=== PATIENT | female | born 1985 | race Caucasian/White ===

== ENCOUNTER 2017-04-08 21:16 | Inpatient (IN) | payer OTHER ==
--- NOTE | ~2017-04-08 | DS ---
Unit #: [id number] #: [id number] Patient: ROSA MOLINA [id number] [facility] [address] [place] [address] [id number] I MR#: [id number] NAME: ROSA MOLINA ROOM: [facility] Age: 31 Sex: F Admission Date: 04/09/2017 : 1985 Discharge Date: 04/11/2017 Attending Physician: Chris Blackwell M.D. DISCHARGE SUMMARY REASON FOR ADMISSION Substance abuse and chemical dependency. HISTORY OF PRESENT ILLNESS Ms. Rosa Molina is a 31-year-old female, admitted on 04/09/2017 and discharged on 04/11/2017. The patient was treated on the inpatient unit with chemical dependency group, psychoeducation, and psychotherapy. The patient responded well with the above modalities of treatment. Subsequently, the patient was discharged with a plan to follow up in an outpatient program. DISCHARGE MEDICATION None. LABORATORY DATA Unremarkable except urine drug screen positive for benzodiazepine, cocaine, and amphetamine. DISCHARGE DIAGNOSES Psychiatric: Opioid use disorder, severe, F11.20; alcohol use disorder, severe, F10.20; cannabis abuse, moderate, F12.20; major depressive disorder, recurrent, severe, F33.2. Secondary diagnosis: Deferred. Medical diagnosis: None. Stressors: Psychosocial stressors. DISCHARGE INSTRUCTIONS The patient is to follow up in outpatient clinic as per licensed clinical social worker. CONDITION ON DISCHARGE The patient was pleasant and cooperative. Denied any psychotic symptom or any suicidal ideation. PROGNOSIS Guarded. DIET AND ACTIVITY As tolerated. Unit #: [id number] #: [id number] Patient: ROSA MOLINA Dictated by... Leslie Barney/suresh TD: 04/12/2017 11:43 JOB #: [id number] DISCHARGE SUMMARY Page 1 of 1 X Chris Blackwell MD X DISCHARGE SUMMARY
--- NOTE | ~2017-04-08 | PA ---
Unit #: [id number] #: [id number] Patient: CESARIO MOLINA [id number] [facility] [address] [place] [address] [id number] MR#: [id number] NAME: CESARIO MOLINA ROOM: [facility] Age: 31 Sex: F Admission Date: 04/09/2017 : 1985 Date of Assessment: 04/09/2017 Attending Physician: Chris Blackwell M.D. Admitting Physician: Chris Blackwell M.D. Primary Care Physician: Primary Care Physician No PSYCHIATRIC ASSESSMENT DATE OF SERVICE 04/09/2017. INFORMANTS The patient reliability, fair; chart reliability, good. CHIEF COMPLAINT Opioid and alcohol abuse with withdrawal, anxiety, and depression. HISTORY OF PRESENT ILLNESS Ms. Lee is a 31-year-old female presented with the above-mentioned complaint. The patient reported use of heroin and alcohol. Reported currently using heroin daily approximately 1 g, last use in the morning of 04/07/2017. The patient reported weekly use of alcohol, half a gallon of vodka, last use on 04/07/2017. The patient reported current withdrawal symptom and scored 20 on CIWA and 22 on COWS. The patient reported currently suicidal ideation with onset of withdrawal symptom. The patient denied any current plans. The patient reported suicidal thoughts. The patient currently denied any homicidal ideation or any psychotic symptom. The patient reported that increased life stressors, homelessness, grief, unemployment, loss of custody of children. Needing inpatient admission at this time for psychiatric stabilization. PAST PSYCHIATRIC HISTORY Remarkable for history of previous treatment at [facility] in 12/2015. FAMILY HISTORY AND SOCIAL HISTORY The patient is currently homeless, lost her children, poor support system. No history of any abuse. MEDICAL HISTORY Unremarkable for any chronic medical illness except for withdrawal symptoms. Musculoskeletal; strength and tone, no atrophy or abnormal movement. Gait normal. MEDICATION HISTORY None. ALLERGIES No known drug allergies. SUBSTANCE ABUSE HISTORY The patient reported tobacco use, age of onset 13; alcohol, age of onset Unit #: [id number] #: [id number] Patient: CESARIO MOLINA 12; crack cocaine, age of onset 17; and opioid, age of onset 20. Longest period of sobriety 2 years. Last period of sobriety in 2010. The patient reported history of blackouts. No history of any HIV or hepatitis. History of IV drug use. History of abdominal cramping, muscle cramping, diaphoresis, diarrhea, depressed mood, irritability, restlessness, sleep problem, tremor. REVIEW OF SYSTEMS HEENT: Eyes; clear. Ears, nose, mouth, and throat; clear. CARDIOVASCULAR: Unremarkable. RESPIRATORY: Unremarkable. GI: Unremarkable. : Unremarkable. SKIN: Unremarkable. LYMPH NODE: Unremarkable. NEUROLOGIC: Unremarkable. ENDOCRINE: Unremarkable. HEMATOLOGIC: Unremarkable. ALLERGIC/IMMUNOLOGIC: Unremarkable. MUSCULOSKELETAL: Muscle strength and tone, no atrophy or abnormal movement. Gait normal. MENTAL STATUS EXAMINATION CONSTITUTIONAL: Measurement of vital signs; temperature 98.5, pulse 69, respirations 16, and blood pressure 113/74. Height 5 feet 4 inches and weight 140 pounds. GENERAL APPEARANCE: The patient dressed casually. The patient did not show any facial deformity. MUSCULOSKELETAL: Please see above. PSYCHIATRIC EXAMINATION Description of speech; regular rate, normal volume, normal articulation, coherent. Description of thought process, goal directed. Description of association, intact. Description of abnormal psychotic thinking, the patient denied any hallucinations or delusions, but sad, depressed, suicidal ideation, substance abuse. Description of the patient's judgment: Concerning everyday activity, poor. Social situation, poor. Concerning psychiatric condition, poor. Complete mental status examination; oriented in time, place, and person. Recent and remote memory, fair. Attention span and concentration, fair. Language; able to name object, repeat phrases. Fund of knowledge; aware of current event, passive vocabulary intact. Mood and affect; sad, depressed. Insight and judgment, fair to poor. ASSETS AND LIABILITIES Assets; the patient is articulate, able to take care of her ADL. Liabilities; history of substance abuse, depression. ADMITTING DIAGNOSES Psychiatric: 1. Opioid use disorder, severe, F11.20. 2. Alcohol use disorder, severe, F10.20. 3. Major depressive disorder, recurrent, severe, F33.2. Secondary diagnosis: Deferred. Medical diagnosis: None. Unit #: [id number] #: [id number] Patient: CESARIO MOLINA Stressors: Psychosocial stressors. PSYCHIATRIC PLAN, TREATMENT GOAL, AND DISCHARGE PLAN 1. Advised to admit the patient on the inpatient unit. Provide safe, supportive, and structured environment. 2. Ordered labs; CBC, CMP, UA, UDS, and test. 3. Detox protocol, detox monitoring, and SP1 precaution. 4. The patient is to attend all the programing including group therapy, individual therapy, and chemical dependency group. If family is available, family therapy. 5. Treatment goal is to attain euthymic mood, gain insight into her problem, and learn coping skills. 6. Discharge plan: Plan is to stabilize the patient and consider followup in outpatient program. ESTIMATED LENGTH OF STAY 5 to 7 days. Dictated by... Chris Blackwell M.D. ANDREW/suresh TD: 04/10/2017 00:39 JOB #: [id number] PSYCHIATRIC ASSESSMENT Page 1 of 1 X Chris Blackwell MD X PSYCHIATRIC ASSESSMENT
--- NOTE | ~2017-04-08 | PN ---
Unit #: [id number] #: [id number] Patient: CESARIO MOLINA [id number] [facility] [address] [place] [address] [id number] MR#: [id number] NAME: CESARIO MOLINA ROOM: [facility] Age: 31 Sex: F Admission Date: 04/09/2017 : 1985 Attending Physician: Chris Blackwell M.D. Admitting Physician: Chris Blackwell M.D. Primary Care Physician: Primary Care Physician Babs GARCIA PROGRESS NOTES DATE 04/10/2017 DISCUSSION Ms. Lee is a 31-year-old female, seen on 04/10/2017. The patient compliant and cooperative, mood sad and dysphoric, withdrawn, isolative, still reporting having withdrawal symptoms. The patient's vital signs, 97.9, 75, 118/75. Height 5 feet 4 inches. REVIEW OF SYSTEMS Complete review of systems unremarkable. MENTAL STATUS EXAMINATION General appearance: Patient dressed casually. Attention span and concentration, fair. Oriented to place and person. Mood and affect, labile. Speech, monotone. Thought process, concrete. The patient denied any thoughts of harming self or others but withdrawn, sad, depressed, anxious. Recent and remote memory, poor. Insight and judgment, poor. DIAGNOSES 1. Opiate abuse disorder, severe. 2. Major depressive disorder, recurrent, severe. ASSESSMENT/PLAN Advised to continue with the current medication and therapeutic protocol, and if needed consider further adjustment of medication. Dictated by... Leslie Barney/selam TD: 04/11/2017 07:38 JOB #: [id number] Unit #: [id number] #: [id number] Patient: CESARIO MOLINA [facility] PROGRESS NOTES Page 1 of 1 X Chris Blackwell MD PROGRESS NOTE
--- NOTE | ~2017-04-08 | HP ---
Unit #: [id number] #: [id number] Patient: ROSA MOLINA [id number] [place] [address] [id number] MR#: [id number] NAME: ROSA MOLINA ROOM: [facility] Age: 31 Sex: F Admission Date: 04/09/2017 : 1985 Attending Physician: Chris Blackwell M.D. Admitting Physician: Chris Blackwell M.D. Primary Care Physician: Primary Care Physician No HISTORY AND PHYSICAL HISTORY OF PRESENT ILLNESS Rosa is a 31-year-old female admitted to [facility] because of her polysubstance abuse which includes snorting heroin and alcohol. PAST MEDICAL HISTORY 1. Long history of alcohol abuse. 2. History of opioid abuse to include snorting heroin. PAST SURGICAL HISTORY Nothing reported. ALLERGIES No known drug allergies. SOCIAL HISTORY Smokes 1 pack per day. Drinks alcohol frequently. Admits a history of opioid abuse to include snorting heroin. FAMILY HISTORY Medically noncontributory. REVIEW OF SYSTEMS She does not answer questions appropriately. There are no reports of nausea, vomiting or diarrhea. She has had no cough or increased temperature. CURRENT MEDICATIONS Detox protocol. PHYSICAL EXAMINATION GENERAL: Alert, well-nourished, in no apparent distress. VITAL SIGNS: Blood pressure 113/74, heart rate 70, respirations 16, temperature 98.6. WEIGHT: 140. HEIGHT: 5 feet 4 inches. SKIN: Warm and dry without rash or lesion. HEENT: Normocephalic. TMs not viewed. Oral and nasal passages clear. Conjunctivae clear. PERRLA. EOMs intact. NECK: Supple without lymphadenopathy or thyromegaly. HEART: Regular rate and rhythm without murmur. LUNGS: Clear. ABDOMEN: Soft, nontender. : Not done. Unit #: [id number] #: [id number] Patient: ROSA MOLINA EXTREMITIES: No evidence of cyanosis, clubbing or edema. Moves all without focal deficit. NEUROLOGICAL: Unable to complete extended exam. She does move all extremities without focal deficit. 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 IMPRESSION Psychiatric admission. RECOMMENDATIONS PSYCHIATRIC: Per psychiatrist. MEDICAL: See no contraindications to participate in facility's activities. MEDICAL PROGNOSIS Good. MEDICAL CONDITION Stable. Dictated by... Angelica Johnson P.A.-C. for Leslie Riggs/janneth TD: 04/09/2017 22:04 JOB #: [id number] HISTORY AND PHYSICAL Page 1 of 1 X Angelica Johnson X HISTORY AND PHYSICAL
--- NOTE | ~2017-04-08 | CO ---
Unit #: [id number] #: [id number] Patient: CESARIO MOLINA [id number] [place] [address] [id number] MR#: [id number] NAME: CESARIO MOLINA ROOM: [facility] Age: 31 Sex: F Admission Date: 04/09/2017 : 1985 Attending Physician: Chris Blackwell M.D. Consultation Date: 04/09/2017 CONSULTATION REPORT SUBJECTIVE Armando is a 31-year-old admitted with an abscess along her left upper thigh. The area has opened and drained prior to admission. We have been asked to assess and treat. OBJECTIVE GENERAL: Alert, well nourished, in no apparent distress. VITAL SIGNS: Blood pressure 120/70, heart rate 80, respirations 16, temperature 98.6. SKIN: Warm and dry without rash. She has a single open clean wound along her left lateral thigh. There is no drainage or odor noted. ASSESSMENT Abscess, previously opened and drained. The area is healing by secondary intention. PLAN Keep the area clean with soap and water. Apply Triple antibiotic ointment and cover with a loose dressing daily. Dictated by... Angelica Johnson P.A.-C. for Leslie Riggs/suresh TD: 04/15/2017 22:41 JOB #: [id number] CONSULTATION REPORT Page 1 of 1 X Angelica Johnson X CONSULTATION REPORT
[2017-04-09 09:31] LABS: BASOPHIL# 0.1 X10e3 (0-0.3); BASOPHIL% 0.6 % (0-2.5); EOSINOPHIL# 0.3 X10e3 (0-0.7); EOSINOPHIL% 2.3 % (0.0-7.0); HEMATOCRIT 39.7 % (35.0-45.0); HEMOGLOBIN 13.1 gm/dL (12.0-16.0); LYMPHOCYTE% 36.5 % (17.0-45.0); MEAN CELL VOLUME 84.4 FL (83-96); MEAN CORPUSCULAR HEMOGLOBIN 27.8 PG (28-34); MEAN CORPUSCULAR HGB CONC 32.9 g/dL (30-36); MEAN PLATELET VOLUME 8.3 FL (6.5-11.5); MONOCYTE# 1.1 X10e3 (0-1.0); MONOCYTE% 10.3 % (3.0-12.0); NEUTROPHIL# 5.5 X10e3 (1.5-7.1); NEUTROPHIL% 50.3 % (40-75); PLATELET COUNT 382 X10e3 (140-420); RED BLOOD COUNT 4.71 X10e (3.90-5.30); RED CELL DISTRIBUTION WIDTH 13.3 % (11.0-15.5); WHITE BLOOD COUNT 10.9 X10e3 (4.0-10.5)
[2017-04-09 09:40] LABS: URINE BILIRUBIN NEG (NEG); URINE BLOOD NEG (NEG); URINE GLUCOSE NORM (NORM); URINE KETONE NEG (NEG); URINE LEUKOCYTE ESTERASE 3+ (NEG); URINE NITRATE NEG (NEG); URINE PROTEIN NEG (NEG); URINE UROBILINOGEN NORM (NORM)
[2017-04-09 09:44] LABS: DIFF IND NO
[2017-04-09 09:48] LABS: ALBUMIN SERUM 3.9 g/dL (3.5-5.0); BILIRUBIN,TOTAL 0.7 mg/dL (0.2-2.0); CALCIUM SERUM 9.3 mg/dL (8.4-10.2); CREATININE SERUM 0.7 mg/dL (0.6-1.4); GLOM FILT RATE Estimated 115.5 mL/min (>60); POTASSIUM 4.4 mmol/L (3.5-5.1); PROTEIN TOTAL SERUM 6.9 g/dL (6.0-8.3)
[2017-04-09 10:03] LABS: AMPHETAMINE POS (NEG); BARBITURATES NEG (NEG); BENZODIAZEPINES POS (NEG); COCAINE POS (NEG); MARIJUANA NEG (NEG); OPIATES NEG (NEG); TRICYCLIC ANTIDEPRESSANTS NEG (NEG); U METHADONE NEG (NEG)
[2017-04-09 10:11] LABS: URINE APPEARANCE SL CLOUDY; URINE COLOR YELLOW
== END 2017-04-11 13:40 | disposition home or self-care (01) | DRG 897 ==
LOC: P1E 04-09 00:38
PROVIDERS: Psychiatry & Neurology Psychiatry
PROC: HZ2ZZZZ Detoxification Services for Substance Abuse Treatment (ICD-10-PCS; principal; 2017-04-09)
DX: F11.20 Opioid dependence, uncomplicated (principal); F33.2 Major depressive disorder, recurrent severe without psychotic features; F10.20 Alcohol dependence, uncomplicated; F17.210 Nicotine dependence, cigarettes, uncomplicated; Z59.0 Homelessness
CPT/HCPCS: 80053; 80307; 81003; 84703; 85025; 86592